=== PATIENT | male | born 1955 | race Caucasian/White ===

== ENCOUNTER → 2016-07-28 | Outpatient (CLI) | payer MEDICARE, BC | END | disposition home or self-care (01) | LOC: PCVCCLINIC 13:38 | PROVIDERS: ATTEND Internal Medicine Cardiovascular Disease | DX: E78.5 Hyperlipidemia, unspecified (principal); E78.00 Pure hypercholesterolemia, unspecified; I10 Essential (primary) hypertension; G47.33 Obstructive sleep apnea (adult) (pediatric); E11.9 Type 2 diabetes mellitus without complications | CPT/HCPCS: 80061; 93005; G0463 ==

== ENCOUNTER → 2018-07-10 | Outpatient (CLI) | payer MEDICARE, BC | END | disposition home or self-care (01) | LOC: PCVCCLINIC 15:26 | PROVIDERS: ATTEND Internal Medicine Cardiovascular Disease | DX: R00.2 Palpitations (principal); I10 Essential (primary) hypertension; E78.00 Pure hypercholesterolemia, unspecified; E11.9 Type 2 diabetes mellitus without complications; R55 Syncope and collapse; R42 Dizziness and giddiness; R07.89 Other chest pain; R06.00 Dyspnea, unspecified; G47.33 Obstructive sleep apnea (adult) (pediatric); Z79.84 Long term (current) use of oral hypoglycemic drugs; Z79.899 Other long term (current) drug therapy | CPT/HCPCS: 93005; G0463 ==

== ENCOUNTER → 2018-08-06 | Outpatient (CLI) | payer MEDICARE, BC ==
--- NOTE | 2018-08-06 11:13 | PCVCIMAG ---
EXAM: BILATERAL CAROTID DUPLEX INDICATION: Carotid Occlusive Disease. FINDINGS: Doppler Measurements (centimeters per second): RIGHT: Peak CCA-89, Peak ECA-89, Diastolic ICA-9, Peak ICA-65, ICA/CCA Ratio-0.7. LEFT: Peak CCA-96, Peak ECA-107, Diastolic ICA-18, Peak ICA-63, ICA/CCA Ratio-0.6. RIGHT CAROTID: The carotid bulb has mild plaque. The proximal internal carotid artery shows <40% stenosis. The common carotid artery shows no significant stenosis. The external carotid artery shows no significant stenosis. LEFT CAROTID: The carotid bulb has mild plaque. The proximal internal carotid artery shows <40% stenosis. The common carotid artery shows no significant stenosis. The external carotid artery shows no significant stenosis. Antegrade flow in both vertebral arteries. IMPRESSION: <40% stenosis of the right internal carotid artery with no significant plaque. <40% stenosis of the left internal carotid artery with no significant plaque. Incidental note is made of a 1.5 x 1.8 x 2.3 cm partially solid/partially cystic left thyroid lobe nodule. If needed dedicated thyroid ultrasound could be done for further evaluation. LOC:[id number]
--- NOTE | 2018-08-06 11:37 | PCVCIMAG ---
APPROVED REPORT Study performed: 08/06/2018 10:31:13 Exam: Stress Echocardiogram Indication: Palpitations, near syncope, htn, dm, sleep apnea Patient Location: Echo lab Stress Nurse: Smita Dickey RN Status: routine Ht: 5 ft 11 in HR: 92 bpm BP: 168/74 mmHg Rhythm: NSR Procedure The patient underwent an Exercise Stress Test using the Satr Protocol. Blood pressure, heart rate, and EKG were monitored. An Echocardiogram was performed by electrical power station technician in four stages in quad fashion. At peak stress, four selected images were obtained and placed side by side with resting images for comparison. Stress Test Details Stress Test: Exercise stress testing was performed using a Star protocol. HR Resting HR: 92 bpmMax Heart Rate (APMHR): 158 bpm Max HR Achieved: 164 bpmTarget HR (85% APMHR): 134 bpm % of APMHR: 103 Recovery HR: 109 bpm HR response to stress: Normal HR response to stress BP Resting BP: 168/74 mmHg Max BP: 220/86 mmHg Recovery BP: 176/80 mmHg BP response to stress: Normal blood pressure response to stress. ECG Resting ECG: Sinus Rhythm, Sinus Tachycardia Stress ECG: Sinus Rhythm ST Change: Normal Arrhythmia: PACs and PVCs, PSVT Recovery ECG: Sinus Rhythm Recovery ST Change: Normal Recovery Arrhythmia: occasional PVCs Clinical Reason for Termination: Maximal effort Stress Symptoms: Dyspnea Exercise duration: 6 min 12 sec Highest Stage Achieved: Stage 3: 3.4 mph at 14% grade. Exercise capacity: 7.5 METs Overall Exercise Capacity for Age: Poor Scale: Sedentary Angina Score: None Pre-Stress Echo The resting Echocardiogram showed normal left ventricular contractility with an estimated Ejection Fraction of about >55%. Normal wall motion in all segments on baseline images. Post-Stress Echo The stress Echocardiogram showed normal left ventricular contractility with an estimated Ejection Fraction of about 65%. Normal augmentation of wall motion in all segments on post stress images. Clinical No clinical or ECG evidence for ischemia. Conclusion Clinical Response: Non-ischemic Exercise Capacity: Below Average Stress ECG Response: Non-ischemic Stress Echo Images: Non-ischemic The left ventricle is normal in size and wall thickness in both the rest and stress images. Other Information Study Quality: Adequate <Conclusion> The left ventricle is normal in size and wall thickness in both the rest and stress images.
--- NOTE | 2018-08-06 21:45 | PCVCIMAG ---
EXAM: ULTRASOUND OF THE THYROID INDICATION: Thyroid nodules. FINDINGS: The right thyroid lobe measures 1.6 x 2.2 x 4.4 cm. The left thyroid lobe measures 2.2 x 2.3 x 3.7 cm. Couple of tiny cysts right thyroid lobe. 1.6 x 1.7 x 2.8 cm partially solid/partially cystic nodule in the mid left thyroid lobe. This does not show abnormally increased blood flow and has multiple cystic spaces internally. IMPRESSION: 2.8 cm partially solid/partially cystic nodule mid left thyroid lobe. Further evaluation by ENT may be of value. LOC:OFFICE
== END | disposition home or self-care (01) ==
LOC: PCVCIMAG 10:05
PROVIDERS: ATTEND Internal Medicine Cardiovascular Disease
DX: I65.23 Occlusion and stenosis of bilateral carotid arteries (principal); E04.1 Nontoxic single thyroid nodule; R00.2 Palpitations; R55 Syncope and collapse; I10 Essential (primary) hypertension; E11.9 Type 2 diabetes mellitus without complications; G47.30 Sleep apnea, unspecified; R42 Dizziness and giddiness; E78.00 Pure hypercholesterolemia, unspecified
CPT/HCPCS: 76536; 93325; 93351; 93880

== ENCOUNTER → 2019-03-14 | Outpatient (CLI) | payer MEDICARE, BC | END | disposition home or self-care (01) | LOC: PCVCCLINIC 10:20 | PROVIDERS: ATTEND Internal Medicine Cardiovascular Disease | DX: E78.00 Pure hypercholesterolemia, unspecified (principal); E11.9 Type 2 diabetes mellitus without complications; I65.23 Occlusion and stenosis of bilateral carotid arteries; G47.33 Obstructive sleep apnea (adult) (pediatric); I10 Essential (primary) hypertension; Z99.89 Dependence on other enabling machines and devices; Z79.4 Long term (current) use of insulin | CPT/HCPCS: 36415; 80061; 93005; G0463 ==